=== PATIENT | male | born 1960 | race Native Hawaiian/Other Pacific Islander ===

== ENCOUNTER 2022-02-26 15:43 | Emergency (ER) | payer MEDICAID ==
[~2022-02-26] VITALS: Ht 157.5 cm; Wt 51.9 kg
[~2022-02-26 15:43] MED LIST: ASPI-1450 PO; ATOR10TA PO
[2022-02-26 16:05] LABS: BASOPHILS % (AUTO) 1.6 % (0.0-2.0); EOSINOPHILS % (AUTO) 10.6 % (1.0-6.0); HEMATOCRIT 36.4 % (41-53); HEMOGLOBIN 12.1 g/dL (13.5-17.5); LYMPHOCYTES # (AUTO) 0.6 K/uL (1.0-4.8); LYMPHOCYTES % (AUTO) 19.3 % (22.0-44.0); MEAN CORPUSCULAR HEMOGLOBIN 34.8 pg (26.0-34.0); MEAN CORPUSCULAR HGB CONC 33.2 G/dL (31.0-37.0); MEAN CORPUSCULAR VOLUME 105 fL (80-100); MONOCYTES # (AUTO) 0.3 K/uL (0.1-1.0); MONOCYTES % (AUTO) 9.7 % (2.0-9.0); NEUTROPHILS # (AUTO) 1.7 K/uL (1.8-7.7); NEUTROPHILS % (AUTO) 58.8 % (40.0-70.0); PLATELET COUNT (AUTO) 102 K/uL (150-450); RED BLOOD CELL COUNT(AUTO) 3.47 MIL/uL (4.50-5.90); RED CELL DISTRIBUTION WIDTH 14.3 % (11.5-14.5)
[2022-02-26 16:15] LABS: CALCIUM, TOTAL 7.8 mg/dL (8.8-10.5); CREATININE 1.4 mg/dL (0.60-1.30); POTASSIUM 3.7 mmol/L (3.5-5.1)
[2022-02-26 16:20] LABS: ALBUMIN 2.8 g/dL (3.4-5.0); BILIRUBIN,TOTAL 0.3 mg/dL (0.1-1.0); TOTAL PROTEIN, SERUM 6.6 g/dL (6.4-8.2)
[2022-02-26 18:52] VITALS: BP 101/60
== END 2022-02-26 19:22 | disposition home or self-care (01) ==
LOC: EMS 15:43
DX: R55 Syncope and collapse (principal); F03.90 Unspecified dementia, unspecified severity, without behavioral disturbance, psychotic disturbance, mood disturbance, and anxiety; R41.841 Cognitive communication deficit
CPT/HCPCS: 71045; 80053; 84484; 85025; 93005; 99285; 36415-L1; 36415-TC

== ENCOUNTER 2023-06-16 13:10 | Inpatient (IN) | payer MEDICAID ==
[~2023-06-16] VITALS: Ht 162.6 cm; Wt 55.3 kg
[2023-06-16 14:38] LABS: BASOPHILS % (AUTO) 0.3 % (0.0-2.0); EOSINOPHILS % (AUTO) 0.4 % (1.0-6.0); HEMOGLOBIN 8.6 g/dL (13.5-17.5); LYMPHOCYTES # (AUTO) 0.3 K/uL (1.0-4.8); LYMPHOCYTES % (AUTO) 4.6 % (22.0-44.0); MEAN CORPUSCULAR HEMOGLOBIN 34.5 pg (26.0-34.0); MEAN CORPUSCULAR VOLUME 105 fL (80-100); MONOCYTES # (AUTO) 0.5 K/uL (0.1-1.0); MONOCYTES % (AUTO) 6.3 % (2.0-9.0); NEUTROPHILS # (AUTO) 6.5 K/uL (1.8-7.7); PLATELET COUNT (AUTO) 172 K/uL (150-450); RED BLOOD CELL COUNT(AUTO) 2.48 MIL/uL (4.50-5.90); RED CELL DISTRIBUTION WIDTH 15.4 % (11.5-14.5); WHITE BLOOD COUNT (AUTO) 7.4 K/uL (4.5-11.0)
[2023-06-16 14:41] LABS: NEUTROPHILS % (AUTO) 88.4 % (40.0-70.0)
[2023-06-16 14:48] LABS: CREATININE 1.48 mg/dL (0.60-1.30); POTASSIUM 3.7 mmol/L (3.5-5.1)
[2023-06-16 14:49] LABS: CALCIUM, TOTAL 8.4 mg/dL (8.8-10.5)
[2023-06-16 14:57] LABS: TROPONIN I-HIGH SENSITIVITY 40 ng/L (<76)
[2023-06-16 15:12] LABS: ALBUMIN 2.6 g/dL (3.4-5.0); BILIRUBIN,TOTAL 0.2 mg/dL (0.1-1.0); TOTAL PROTEIN, SERUM 6.3 g/dL (6.4-8.2)
[2023-06-16 15:27] LABS: INFLUENZA A-RTPCR,COMBO NEGATIVE (NEGATIVE); INFLUENZA B-RTPCR,COMBO NEGATIVE (NEGATIVE); RESPIRATORY SYNCYTIAL VRS-PCR NEGATIVE (NEGATIVE); SARS COVID19 RTPCR, COMBO NEGATIVE (NEGATIVE)
[2023-06-16 15:46] LABS: RBC MORPHOLOGY COMMENT ABNORMAL RBC MORPH
[2023-06-16] MEDS: SODIUM CHLORIDE 0.9% 1,000 ML IV ONE (16:23)
[2023-06-16 17:13] LABS: APPEARANCE,URINE HAZY (CLEAR); BILIRUBIN,URINE NEGATIVE (NEGATIVE); COLOR,URINE DARK YELLOW (YELLOW); GLUCOSE, URINE (UA) NEGATIVE (NEGATIVE); KETONES,URINE NEGATIVE (NEGATIVE); LEUKOCYTE ESTERASE ,URINE LARGE (NEGATIVE); NITRATE,URINE NEGATIVE (NEGATIVE); OCCULT BLOOD,URINE MODERATE (NEGATIVE); PH,URINE 5.5 (5.0-8.0); PROTEIN,URINE 30-70 mg/dL (NEGATIVE); SPECIFIC GRAVITIY, URINE 1.022 (1.003-1.030)
[2023-06-16 17:23] LABS: BACTERIA,URINE Moderate /HPF (None Seen); WBC,URINE 26-50 /HPF (0-5)
[2023-06-16] MEDS: CefTRIAXone 1 GM/DEXTROSE 50 ML IV ONE (18:00)
[2023-06-16] MEDS: NOREPINEPHRINE 8 MG/0.9 % NACL 250 ML IV PRN (21:08)
[2023-06-16 22:00] LABS: LACTIC ACID 2.1 mmol/L (0.4-2.0)
[2023-06-16] MEDS: SODIUM CHLORIDE 0.9% 1,900 ML IV ONE (22:30)
[2023-06-16 23:06] LABS: INR 1.1 (0.9-1.1)
[2023-06-17 11:51] VITALS: BP 89/43; PULSE 66; RESP 18; TEMP 97.6
[2023-06-17] MEDS ORDERED: SODIUM CHLORIDE 0.9% 500 ML IV ONE (12:21)
[2023-06-17 13:07] VITALS: BP 99/45; PULSE 62; RESP 18; TEMP 97.2
[2023-06-17] MEDS ORDERED: HYDROCODONE/ACETAMINOPHEN 5-325 MG TABLET PO PRN (14:30)
[2023-06-17] MEDS ORDERED: ZOLPIDEM TARTRATE 5 MG TABLET PO PRN (14:30)
[2023-06-17] MEDS ORDERED: IPRATROPIUM BROMIDE 0.5 MG/2.5 ML NEB SOLUTION NEB PRN (14:30)
[2023-06-17] MEDS ORDERED: MORPHINE SULFATE 2 MG/ML SYRINGE IVP PRN (14:30)
[2023-06-17] MEDS ORDERED: ONDANSETRON HCL 4 MG/2 ML VIAL IVP PRN (14:30)
[2023-06-17] MEDS ORDERED: ALBUTEROL SULFATE 2.5 MG/0.5 ML NEB SOLUTION NEB PRN (14:30)
[2023-06-17 15:36] VITALS: BP 107/62; PULSE 80; RESP 18; TEMP 98
[2023-06-17 15:45] LABS: ABG CARBOXYHEMOGLOBIN 1.1 % (0.0-1.5); ABG HCO3 23.8 mmol/L (22.0-26.0); ABG METHEMOGLOBIN 0.3 % (0.0-1.5); ABG OXYGEN CONTENT 9.8 mL/dL (15.0-23.0); ABG OXYGEN SATURATION 99.6 % (95.0-98.0); ABG OXYHEMOGLOBIN 98.2 % (94.0-100.0); ABG PCO2 31 mmHg (35-45); ABG PH 7.484 (7.35-7.450); PO2, ARTERIAL BG 176.5 mmHg (79.0-87.0); SOURCE, BLOOD GAS ARTERIAL; TEMPERATURE, FAHRENHEIT, BG 97.2 FAHREN (96.0-98.6)
[2023-06-17 15:47] LABS: ABG TOTAL HEMOGLOBIN 6.8 G/dL (12.0-18.0); ALLEN TEST, BLOOD GAS POS; O2 DEVICE,BLOOD GAS NC (ROOM AIR); SITE, BLOOD GAS LFT BRACHIAL
[2023-06-17] MEDS: HEPARIN SODIUM,PORCINE 5,000 UNITS/ML VIAL SQ SCH (16:00)
[2023-06-17] MEDS: SODIUM CHLORIDE 0.9% 1,000 ML IV SCH (16:03)
[2023-06-17] MEDS: CefTRIAXone 1 GM/DEXTROSE 50 ML IV SCH (18:29)
[2023-06-17 19:15] LABS: BASOPHILS % (AUTO) 0.4 % (0.0-2.0); EOSINOPHILS % (AUTO) 2.2 % (1.0-6.0); LYMPHOCYTES % (AUTO) 21.3 % (22.0-44.0); MEAN CORPUSCULAR HEMOGLOBIN 34.4 pg (26.0-34.0); MEAN CORPUSCULAR HGB CONC 33.2 G/dL (31.0-37.0); MEAN CORPUSCULAR VOLUME 104 fL (80-100); MONOCYTES # (AUTO) 0.3 K/uL (0.1-1.0); MONOCYTES % (AUTO) 6.6 % (2.0-9.0); NEUTROPHILS # (AUTO) 3.3 K/uL (1.8-7.7); NEUTROPHILS % (AUTO) 69.5 % (40.0-70.0); PLATELET COUNT (AUTO) 110 K/uL (150-450); RED CELL DISTRIBUTION WIDTH 15.3 % (11.5-14.5); WHITE BLOOD COUNT (AUTO) 4.8 K/uL (4.5-11.0)
[2023-06-17 19:18] LABS: HEMOGLOBIN 5.9 g/dL (13.5-17.5)
[2023-06-17 19:19] LABS: HEMATOCRIT 17.7 % (41-53)
[2023-06-17 20:15] VITALS: BP 99/42; PULSE 94; RESP 18; TEMP 101.5
[2023-06-17] MEDS: DOCUSATE SODIUM 100 MG CAPSULE PO SCH (20:51)
[2023-06-17] MEDS: ACETAMINOPHEN 325 MG TABLET PO PRN (20:52)
[2023-06-17 21:15] LABS: RBC MORPHOLOGY COMMENT ABNORMAL RBC MORPH
[2023-06-17 21:38] LABS: PATHOLOGY REVIEW, DIFF YES
[2023-06-17 21:56] VITALS: TEMP 99.9
[2023-06-17 22:38] VITALS: BP 103/48; PULSE 92; RESP 18; TEMP 99.9
[2023-06-18] VITALS (18 sets, daily range): BP systolic 70–115; BP diastolic 35–61; PULSE 59–94; RESP 16–19; TEMP 97.8–100.2
[2023-06-18] MEDS: IBUPROFEN 800 MG TABLET PO ONE (02:25)
[2023-06-18 07:17] LABS: EOSINOPHILS % (AUTO) 5.4 % (1.0-6.0); LYMPHOCYTES # (AUTO) 0.8 K/uL (1.0-4.8); LYMPHOCYTES % (AUTO) 18.9 % (22.0-44.0); MEAN CORPUSCULAR HEMOGLOBIN 34.6 pg (26.0-34.0); MEAN CORPUSCULAR HGB CONC 32.5 G/dL (31.0-37.0); MEAN CORPUSCULAR VOLUME 106 fL (80-100); MONOCYTES # (AUTO) 0.3 K/uL (0.1-1.0); MONOCYTES % (AUTO) 8.1 % (2.0-9.0); NEUTROPHILS # (AUTO) 2.8 K/uL (1.8-7.7); NEUTROPHILS % (AUTO) 66.6 % (40.0-70.0); PLATELET COUNT (AUTO) 94 K/uL (150-450); RED BLOOD CELL COUNT(AUTO) 1.45 MIL/uL (4.50-5.90); RED CELL DISTRIBUTION WIDTH 15.4 % (11.5-14.5); WHITE BLOOD COUNT (AUTO) 4.1 K/uL (4.5-11.0)
[2023-06-18 07:34] LABS: HEMATOCRIT 15.4 % (41-53)
[2023-06-18 08:50] LABS: RBC MORPHOLOGY COMMENT ABNORMAL RBC MORPH
[2023-06-18] MEDS ORDERED: PANTOPRAZOLE SODIUM 40 MG/VIAL IVP SCH (09:00)
[2023-06-18] MEDS: ASPIRIN 81 MG CHEWABLE TABLET PO SCH (09:00)
[2023-06-18] MEDS: ATORVASTATIN CALCIUM 10 MG TABLET PO SCH (09:00)
[2023-06-18] MEDS: PANTOPRAZOLE SODIUM 80 MG in SODIUM CHLORIDE 0.9% 100 ML IV SCH (15:15)
[2023-06-18 21:34] LABS: BASOPHILS % (AUTO) 0.6 % (0.0-2.0); EOSINOPHILS % (AUTO) 5.2 % (1.0-6.0); LYMPHOCYTES # (AUTO) 1.1 K/uL (1.0-4.8); MEAN CORPUSCULAR HEMOGLOBIN 33.6 pg (26.0-34.0); MEAN CORPUSCULAR HGB CONC 33.2 G/dL (31.0-37.0); MEAN CORPUSCULAR VOLUME 101 fL (80-100); MONOCYTES # (AUTO) 0.4 K/uL (0.1-1.0); NEUTROPHILS # (AUTO) 3.5 K/uL (1.8-7.7); NEUTROPHILS % (AUTO) 66.2 % (40.0-70.0); PLATELET COUNT (AUTO) 100 K/uL (150-450); RED BLOOD CELL COUNT(AUTO) 1.96 MIL/uL (4.50-5.90); WHITE BLOOD COUNT (AUTO) 5.3 K/uL (4.5-11.0)
[2023-06-18 21:38] LABS: HEMATOCRIT 19.8 % (41-53); HEMOGLOBIN 6.6 g/dL (13.5-17.5)
[2023-06-18 22:35] LABS: RBC MORPHOLOGY COMMENT ABNORMAL RBC MORPH
[2023-06-19] VITALS (15 sets, daily range): BP systolic 96–119; BP diastolic 47–68; PULSE 79–103; RESP 15–20; TEMP 98.7–101.3
[2023-06-19 08:00] LABS: BASOPHILS % (AUTO) 0.8 % (0.0-2.0); EOSINOPHILS % (AUTO) 5.3 % (1.0-6.0); HEMATOCRIT 23.6 % (41-53); LYMPHOCYTES # (AUTO) 1.3 K/uL (1.0-4.8); MEAN CORPUSCULAR HEMOGLOBIN 32.3 pg (26.0-34.0); MEAN CORPUSCULAR HGB CONC 34.1 G/dL (31.0-37.0); MEAN CORPUSCULAR VOLUME 95 fL (80-100); MONOCYTES # (AUTO) 0.5 K/uL (0.1-1.0); MONOCYTES % (AUTO) 7.2 % (2.0-9.0); NEUTROPHILS # (AUTO) 4.1 K/uL (1.8-7.7); NEUTROPHILS % (AUTO) 65.7 % (40.0-70.0); PLATELET COUNT (AUTO) 96 K/uL (150-450); RED BLOOD CELL COUNT(AUTO) 2.49 MIL/uL (4.50-5.90); RED CELL DISTRIBUTION WIDTH 21.1 % (11.5-14.5); WHITE BLOOD COUNT (AUTO) 6.2 K/uL (4.5-11.0)
[2023-06-20] VITALS (8 sets, daily range): BP systolic 101–136; BP diastolic 51–69; PULSE 69–91; RESP 18–22; TEMP 98–100.9
[2023-06-20 07:36] LABS: EOSINOPHILS % (AUTO) 7.7 % (1.0-6.0); HEMOGLOBIN 7.1 g/dL (13.5-17.5); LYMPHOCYTES # (AUTO) 0.7 K/uL (1.0-4.8); LYMPHOCYTES % (AUTO) 21.3 % (22.0-44.0); MEAN CORPUSCULAR HEMOGLOBIN 32.2 pg (26.0-34.0); MEAN CORPUSCULAR HGB CONC 33.6 G/dL (31.0-37.0); MEAN CORPUSCULAR VOLUME 96 fL (80-100); MONOCYTES # (AUTO) 0.2 K/uL (0.1-1.0); MONOCYTES % (AUTO) 7.2 % (2.0-9.0); NEUTROPHILS # (AUTO) 2.1 K/uL (1.8-7.7); NEUTROPHILS % (AUTO) 62.8 % (40.0-70.0); PLATELET COUNT (AUTO) 100 K/uL (150-450); RED CELL DISTRIBUTION WIDTH 20.7 % (11.5-14.5); WHITE BLOOD COUNT (AUTO) 3.3 K/uL (4.5-11.0)
[2023-06-20 07:47] LABS: ANION GAP 6 mmol/L (8-16); CALCIUM, TOTAL 7.1 mg/dL (8.8-10.5); CARBON DIOXIDE 25 mmol/L (22-29); CHLORIDE 112 mmol/L (98-107); CREATININE 0.96 mg/dL (0.60-1.30); GLOMERULAR FILTR. RATE CALC > 60 mL/min (>60); GLUCOSE,RANDOM 94 mg/dL (70-110); POTASSIUM 3.8 mmol/L (3.5-5.1); SODIUM SERUM 143 mmol/L (136-145); UREA NITROGEN, BLOOD 10 mg/dL (7-18)
[2023-06-20 07:58] LABS: RBC MORPHOLOGY COMMENT ABNORMAL RBC MORPH
[2023-06-20] MEDS ORDERED: SODIUM CHLORIDE 0.9% 1,000 ML ONE (13:09)
[2023-06-20] MEDS: SODIUM CHLORIDE 0.9% 1,000 ML IV ONE (14:38)
[2023-06-20] MEDS ORDERED: MIDAZOLAM HCL 5 MG/ML VIAL ONE (15:20)
[2023-06-20] MEDS ORDERED: FentaNYL CITRATE PF 100 MCG/2 ML VIAL ONE (15:20)
[2023-06-20] MEDS: FentaNYL CITRATE PF 100 MCG/2 ML VIAL IVP ONE (18:07)
[2023-06-20] MEDS: MIDAZOLAM HCL 2 MG/2 ML VIAL IVP ONE (18:10)
[2023-06-20] MEDS: PANTOPRAZOLE SODIUM 40 MG/VIAL IVP SCH (20:01)
[2023-06-21 05:35] VITALS: BP 132/72; PULSE 103; RESP 18; TEMP 101
[2023-06-21 07:57] VITALS: BP 103/68; PULSE 82; RESP 18; TEMP 101.3
[2023-06-21 08:51] VITALS: TEMP 99.9
[2023-06-21 12:09] LABS: BASOPHILS % (AUTO) 1.2 % (0.0-2.0); EOSINOPHILS % (AUTO) 5.2 % (1.0-6.0); HEMATOCRIT 25.2 % (41-53); HEMOGLOBIN 8.4 g/dL (13.5-17.5); LYMPHOCYTES # (AUTO) 1.1 K/uL (1.0-4.8); LYMPHOCYTES % (AUTO) 32.4 % (22.0-44.0); MEAN CORPUSCULAR HEMOGLOBIN 31.9 pg (26.0-34.0); MEAN CORPUSCULAR HGB CONC 33.5 G/dL (31.0-37.0); MEAN CORPUSCULAR VOLUME 95 fL (80-100); MONOCYTES # (AUTO) 0.2 K/uL (0.1-1.0); MONOCYTES % (AUTO) 6.5 % (2.0-9.0); NEUTROPHILS # (AUTO) 1.8 K/uL (1.8-7.7); NEUTROPHILS % (AUTO) 54.7 % (40.0-70.0); PLATELET COUNT (AUTO) 135 K/uL (150-450); RED BLOOD CELL COUNT(AUTO) 2.65 MIL/uL (4.50-5.90); RED CELL DISTRIBUTION WIDTH 19.9 % (11.5-14.5); WHITE BLOOD COUNT (AUTO) 3.4 K/uL (4.5-11.0)
[2023-06-21 12:23] LABS: ANION GAP 7 mmol/L (8-16); CARBON DIOXIDE 24 mmol/L (22-29); CHLORIDE 111 mmol/L (98-107); CREATININE 0.97 mg/dL (0.60-1.30); GLOMERULAR FILTR. RATE CALC > 60 mL/min (>60); GLUCOSE,RANDOM 104 mg/dL (70-110); POTASSIUM 3.5 mmol/L (3.5-5.1); SODIUM SERUM 142 mmol/L (136-145); UREA NITROGEN, BLOOD 11 mg/dL (7-18)
[2023-06-21 12:47] LABS: RBC MORPHOLOGY COMMENT ABNORMAL RBC MORPH
[2023-06-21] MEDS ORDERED: IOHEXOL 350 MG/ML 100 ML VIAL ONE (13:48)
[2023-06-21] MEDS ORDERED: SODIUM CHLORIDE 0.9% 100 ML ONE (13:48)
[2023-06-21 15:22] VITALS: BP 109/59; PULSE 63; RESP 18; TEMP 99.6
[2023-06-21 20:10] VITALS: BP 127/68; PULSE 88; RESP 18; TEMP 98.4
[2023-06-21] MEDS: GuaiFENesin [SUGAR-FREE] 200 MG/10 ML SOLUTION UDCUP PO PRN (23:00)
[2023-06-21] MEDS: MetroNIDAZOLE 500 MG TABLET PO SCH (23:00)
[2023-06-22 03:30] VITALS: BP 116/76; PULSE 82; RESP 18; TEMP 99
[2023-06-22 08:40] VITALS: BP 106/52; PULSE 72; RESP 18; TEMP 98.1
[2023-06-22 16:11] VITALS: BP 107/58; PULSE 72; RESP 18; TEMP 99.1
[2023-06-22 20:06] VITALS: BP 128/57; PULSE 88; RESP 18; TEMP 100.2
[2023-06-23 04:08] VITALS: BP 129/62; PULSE 89; RESP 18; TEMP 99.5
[2023-06-23 06:33] LABS: BASOPHILS % (AUTO) 1.1 % (0.0-2.0); EOSINOPHILS % (AUTO) 13.8 % (1.0-6.0); HEMATOCRIT 23.7 % (41-53); HEMOGLOBIN 7.9 g/dL (13.5-17.5); LYMPHOCYTES # (AUTO) 0.8 K/uL (1.0-4.8); MEAN CORPUSCULAR HEMOGLOBIN 31.5 pg (26.0-34.0); MEAN CORPUSCULAR HGB CONC 33.2 G/dL (31.0-37.0); MEAN CORPUSCULAR VOLUME 95 fL (80-100); MONOCYTES # (AUTO) 0.3 K/uL (0.1-1.0); MONOCYTES % (AUTO) 7.6 % (2.0-9.0); NEUTROPHILS % (AUTO) 54.5 % (40.0-70.0); PLATELET COUNT (AUTO) 168 K/uL (150-450); RED CELL DISTRIBUTION WIDTH 19.5 % (11.5-14.5); WHITE BLOOD COUNT (AUTO) 3.7 K/uL (4.5-11.0)
[2023-06-23 09:11] VITALS: BP 155/100; PULSE 89; RESP 19; TEMP 98.1
[2023-06-23 12:36] VITALS: TEMP 98.4
[2023-06-23 20:28] VITALS: BP 122/55; PULSE 88; RESP 18; TEMP 99.5
[2023-06-24 05:01] VITALS: BP 104/58; PULSE 70; RESP 18; TEMP 99.5
[2023-06-24 06:29] VITALS: TEMP 98.4
[2023-06-24 08:00] VITALS: BP 98/57; PULSE 74; RESP 18; TEMP 99.4
[2023-06-24 16:00] VITALS: BP 123/92; PULSE 82; RESP 18; TEMP 98.7
[2023-06-24] MEDS ORDERED: SODIUM CHLORIDE 0.9% 500 ML IV ONE (18:04)
[2023-06-24 20:16] VITALS: BP 109/52; PULSE 84; RESP 18; TEMP 101.6
[2023-06-24 23:06] LABS: APPEARANCE,URINE CLEAR (CLEAR); BILIRUBIN,URINE NEGATIVE (NEGATIVE); COLOR,URINE LIGHT YELLOW (YELLOW); GLUCOSE, URINE (UA) NEGATIVE (NEGATIVE); KETONES,URINE NEGATIVE (NEGATIVE); LEUKOCYTE ESTERASE ,URINE NEGATIVE (NEGATIVE); NITRATE,URINE NEGATIVE (NEGATIVE); OCCULT BLOOD,URINE NEGATIVE (NEGATIVE); PH,URINE 6.5 (5.0-8.0); PROTEIN,URINE NEGATIVE (NEGATIVE); SPECIFIC GRAVITIY, URINE 1.009 (1.003-1.030); UROBILINOGEN,URINE <=1.0 mg/dL (<=1.0)
[2023-06-25 04:30] VITALS: BP 110/50; PULSE 75; RESP 18; TEMP 100.3
[2023-06-25 06:50] LABS: BASOPHILS % (AUTO) 1.3 % (0.0-2.0); EOSINOPHILS % (AUTO) 11.4 % (1.0-6.0); HEMATOCRIT 22.9 % (41-53); HEMOGLOBIN 7.7 g/dL (13.5-17.5); LYMPHOCYTES % (AUTO) 31.9 % (22.0-44.0); MEAN CORPUSCULAR HGB CONC 33.5 G/dL (31.0-37.0); MEAN CORPUSCULAR VOLUME 95 fL (80-100); MONOCYTES # (AUTO) 0.3 K/uL (0.1-1.0); MONOCYTES % (AUTO) 9.3 % (2.0-9.0); NEUTROPHILS # (AUTO) 1.5 K/uL (1.8-7.7); NEUTROPHILS % (AUTO) 46.1 % (40.0-70.0); PLATELET COUNT (AUTO) 190 K/uL (150-450); RED CELL DISTRIBUTION WIDTH 19.5 % (11.5-14.5); WHITE BLOOD COUNT (AUTO) 3.2 K/uL (4.5-11.0)
[2023-06-25 06:58] LABS: ALANINE AMINOTRANSFERASE 17 U/L (12-78); ALBUMIN 1.5 g/dL (3.4-5.0); ALKALINE PHOSPHATASE 118 U/L (46-116); ANION GAP 4 mmol/L (8-16); ASPARTATE AMINOTRANSFERASE 28 U/L (15-37); BILIRUBIN,TOTAL 0.4 mg/dL (0.1-1.0); CALCIUM, TOTAL 6.9 mg/dL (8.8-10.5); CARBON DIOXIDE 27 mmol/L (22-29); CHLORIDE 109 mmol/L (98-107); GLOMERULAR FILTR. RATE CALC > 60 mL/min (>60); GLUCOSE,RANDOM 94 mg/dL (70-110); SODIUM SERUM 140 mmol/L (136-145); TOTAL PROTEIN, SERUM 4.7 g/dL (6.4-8.2); UREA NITROGEN, BLOOD 10 mg/dL (7-18)
[2023-06-25 08:30] VITALS: BP 113/56; PULSE 77; RESP 18; TEMP 100.4
[2023-06-25] MEDS: LEVOFLOXACIN 750 MG/D5% WATER 150 ML IV SCH (16:16)
[2023-06-25 16:24] LABS: COVID AG,FIA SOURCE NASAL SWAB
[2023-06-25 17:06] LABS: SARS-COV2 (COVID) ANTIGEN,FIA Negative (Negative)
[2023-06-25] MEDS: VANCOMYCIN 1.5 GM/WATER(PEG) 300 ML IV ONE (17:18)
[2023-06-25] MEDS: MAGNESIUM HYDROXIDE SUSPENSION 30 ML UDCUP PO PRN (17:52)
[2023-06-25] MEDS: FERROUS SULFATE 325 MG EC TABLET PO SCH (17:53)
[2023-06-25 20:02] VITALS: BP 115/82; PULSE 86; RESP 18; TEMP 98.7
[2023-06-26 03:08] VITALS: BP 105/56; PULSE 78; RESP 18; TEMP 98.7
[2023-06-26] MEDS: MULTIVITAMINS WITH MINERALS, THERAPEUTIC TABLET PO SCH (08:37)
[2023-06-26] MEDS: BISACODYL 10 MG RECTAL RECTAL SUPPOSITORY PR PRN (08:38)
[2023-06-26] MEDS: VANCOMYCIN 1GM/WATER(PEG/NADA) 200 ML IV SCH (08:40)
[2023-06-26 09:14] VITALS: BP 112/47; PULSE 70; RESP 18; TEMP 97.8
[2023-06-26 10:17] LABS: BASOPHILS % (AUTO) 1.1 % (0.0-2.0); EOSINOPHILS % (AUTO) 9.3 % (1.0-6.0); HEMATOCRIT 26.5 % (41-53); HEMOGLOBIN 8.6 g/dL (13.5-17.5); LYMPHOCYTES % (AUTO) 25.6 % (22.0-44.0); MEAN CORPUSCULAR HEMOGLOBIN 31.5 pg (26.0-34.0); MEAN CORPUSCULAR HGB CONC 32.6 G/dL (31.0-37.0); MEAN CORPUSCULAR VOLUME 97 fL (80-100); MONOCYTES # (AUTO) 0.4 K/uL (0.1-1.0); MONOCYTES % (AUTO) 10.5 % (2.0-9.0); NEUTROPHILS # (AUTO) 2.1 K/uL (1.8-7.7); NEUTROPHILS % (AUTO) 53.5 % (40.0-70.0); PLATELET COUNT (AUTO) 209 K/uL (150-450); RED BLOOD CELL COUNT(AUTO) 2.74 MIL/uL (4.50-5.90); RED CELL DISTRIBUTION WIDTH 19.6 % (11.5-14.5); WHITE BLOOD COUNT (AUTO) 3.9 K/uL (4.5-11.0)
[2023-06-26 10:34] LABS: ANION GAP 5 mmol/L (8-16); CALCIUM, TOTAL 7.3 mg/dL (8.8-10.5); CARBON DIOXIDE 29 mmol/L (22-29); CHLORIDE 107 mmol/L (98-107); CREATININE 1.06 mg/dL (0.60-1.30); GLOMERULAR FILTR. RATE CALC > 60 mL/min (>60); GLUCOSE,RANDOM 111 mg/dL (70-110); POTASSIUM 4.2 mmol/L (3.5-5.1); SODIUM SERUM 141 mmol/L (136-145); UREA NITROGEN, BLOOD 11 mg/dL (7-18)
[2023-06-26 16:36] VITALS: BP 90/49; PULSE 58; RESP 16; TEMP 98.1
[2023-06-26 20:27] VITALS: BP 124/78; PULSE 70; RESP 18; TEMP 97.7
[2023-06-27 04:14] VITALS: BP 106/54; PULSE 64; RESP 18; TEMP 97.8
[2023-06-27 07:39] VITALS: BP 112/58; PULSE 68; RESP 18; TEMP 97.6
[2023-06-27 08:02] LABS: ANION GAP 6 mmol/L (8-16); CALCIUM, TOTAL 7.4 mg/dL (8.8-10.5); CARBON DIOXIDE 27 mmol/L (22-29); CHLORIDE 104 mmol/L (98-107); CREATININE 1.02 mg/dL (0.60-1.30); GLOMERULAR FILTR. RATE CALC > 60 mL/min (>60); GLUCOSE,RANDOM 102 mg/dL (70-110); POTASSIUM 4.4 mmol/L (3.5-5.1); SODIUM SERUM 137 mmol/L (136-145); UREA NITROGEN, BLOOD 12 mg/dL (7-18)
[2023-06-27 16:03] VITALS: BP 105/68; PULSE 95; RESP 20; TEMP 98.2
[2023-06-27 19:47] VITALS: BP 96/51; PULSE 70; RESP 18; TEMP 98.7
[2023-06-27] MEDS: VANCOMYCIN 750 MG/WATER(PEG) 150 ML IV SCH (20:15)
[2023-06-28 05:08] VITALS: BP 109/63; PULSE 66; RESP 17; TEMP 97.9
[2023-06-28 07:16] LABS: BASOPHILS % (AUTO) 0.8 % (0.0-2.0); EOSINOPHILS % (AUTO) 6.9 % (1.0-6.0); HEMATOCRIT 26.1 % (41-53); HEMOGLOBIN 8.7 g/dL (13.5-17.5); LYMPHOCYTES # (AUTO) 1.1 K/uL (1.0-4.8); LYMPHOCYTES % (AUTO) 22.9 % (22.0-44.0); MEAN CORPUSCULAR HEMOGLOBIN 32.8 pg (26.0-34.0); MEAN CORPUSCULAR HGB CONC 33.3 G/dL (31.0-37.0); MEAN CORPUSCULAR VOLUME 98 fL (80-100); MONOCYTES # (AUTO) 0.4 K/uL (0.1-1.0); MONOCYTES % (AUTO) 8.6 % (2.0-9.0); NEUTROPHILS # (AUTO) 2.8 K/uL (1.8-7.7); NEUTROPHILS % (AUTO) 60.8 % (40.0-70.0); PLATELET COUNT (AUTO) 208 K/uL (150-450); RED BLOOD CELL COUNT(AUTO) 2.65 MIL/uL (4.50-5.90); RED CELL DISTRIBUTION WIDTH 19.9 % (11.5-14.5); WHITE BLOOD COUNT (AUTO) 4.6 K/uL (4.5-11.0)
[2023-06-28 07:22] LABS: ANION GAP 5 mmol/L (8-16); CALCIUM, TOTAL 7.3 mg/dL (8.8-10.5); CARBON DIOXIDE 29 mmol/L (22-29); CHLORIDE 106 mmol/L (98-107); CREATININE 0.98 mg/dL (0.60-1.30); GLOMERULAR FILTR. RATE CALC > 60 mL/min (>60); GLUCOSE,RANDOM 97 mg/dL (70-110); POTASSIUM 4.2 mmol/L (3.5-5.1); SODIUM SERUM 139 mmol/L (136-145); UREA NITROGEN, BLOOD 11 mg/dL (7-18)
[2023-06-28 08:22] VITALS: BP 104/67; PULSE 70; RESP 20; TEMP 98.5
[2023-06-28 16:24] VITALS: BP_SYST 123; BP_SYST 125; BP_DIAS 49; BP_DIAS 50; PULSE 70; PULSE 72; RESP 18; RESP 20; TEMP 98.4
== END 2023-06-28 16:56 | disposition hospice, home (50) | DRG 720 ==
LOC: EMS 13:15 → 5S 06-17 10:57 → 6S 06-20 16:46
PROVIDERS: ADMIT Hospitalist; ATTEND Hospitalist
PROC: 30233N1 Transfusion of Nonautologous Red Blood Cells into Peripheral Vein, Percutaneous Approach (ICD-10-PCS; principal; 2023-06-19)
PROC: 0DB78ZX Excision of Stomach, Pylorus, Via Natural or Artificial Opening Endoscopic, Diagnostic (ICD-10-PCS; 2023-06-20)
PROC: 05HC33Z Insertion of Infusion Device into Left Basilic Vein, Percutaneous Approach (ICD-10-PCS; 2023-06-21)
PROC: 05HD33Z Insertion of Infusion Device into Right Cephalic Vein, Percutaneous Approach (ICD-10-PCS; 2023-06-26)
DX: A41.9 Sepsis, unspecified organism (principal); J96.00 Acute respiratory failure, unspecified whether with hypoxia or hypercapnia; D61.818 Other pancytopenia; S72.141A Displaced intertrochanteric fracture of right femur, initial encounter for closed fracture; K29.71 Gastritis, unspecified, with bleeding; D69.6 Thrombocytopenia, unspecified; I95.9 Hypotension, unspecified; F03.90 Unspecified dementia, unspecified severity, without behavioral disturbance, psychotic disturbance, mood disturbance, and anxiety; Z20.822 Contact with and (suspected) exposure to COVID-19; D50.0 Iron deficiency anemia secondary to blood loss (chronic); N39.0 Urinary tract infection, site not specified; Q90.9 Down syndrome, unspecified; N28.9 Disorder of kidney and ureter, unspecified; N43.3 Hydrocele, unspecified; R62.7 Adult failure to thrive; Z66 Do not resuscitate; Z99.3 Dependence on wheelchair; N50.89 Other specified disorders of the male genital organs; X58.XXXA Exposure to other specified factors, initial encounter; Y93.89 Activity, other specified; Y92.89 Other specified places as the place of occurrence of the external cause; Y99.8 Other external cause status
CPT/HCPCS: 0241U; 36245; 36569; 36600; 71045; 71260; 72193; 73521; 74160; 76870; 76937; 80048; 80053; 80202; 81001; 81003; 82550; 82805; 83605; 83880; 84145; 84484; 85025; 85610; 86850; 86900; 86901; 86923; 87040; 87086; 87186; 88305; 88312; 88313; 92610; 93005; 97163; 99291; C9113; G0378; J0696; J1956; J2250; J3010; J7030; J7040; J7050; P9016; Q9967; 36415-L1; 36415-TC